=== PATIENT | female | born 1980 | race African-American/Black ===

== ENCOUNTER 2023-01-26 11:20 | Emergency (ER) | payer OTHER ==
[~2023-01-26] VITALS: Ht 177.8 cm; Wt 115.7 kg
[2023-01-26 11:41] VITALS: BP 162/94
[2023-01-26] MEDS ORDERED: SULTRIDS PO (12:23)
[2023-01-26] MEDS ORDERED: CEPH500 PO (12:23)
== END 2023-01-26 12:30 | disposition home or self-care (01) ==
LOC: ER 11:20
DX: L73.9 Follicular disorder, unspecified (principal); I10 Essential (primary) hypertension
CPT/HCPCS: 99282